=== PATIENT | male | born 1980 | race African-American/Black ===

== ENCOUNTER 2018-10-29 08:31 | Emergency (ER) | payer MEDICAID ==
[~2018-10-29] VITALS: Ht 190.5 cm; Wt 77.0 kg
[2018-10-29] MEDS ORDERED: ALBUTEROL (0.083%) 2.5MG/3ML NEB HHN STA (09:15)
[2018-10-29] MEDS ORDERED: ONDANSETRON 4MG ODT PO ONE (09:15)
[2018-10-29] MEDS ORDERED: DEXAMETHASONE 10 MG/ML VIAL IM ONE (10:00)
[2018-10-29] MEDS ORDERED: OSELTAMIVIR 75MG CAPSULE PO ONE (10:30)
[2018-10-29 11:08] VITALS: BP 100/55
== END 2018-10-29 11:14 | disposition home or self-care (01) ==
LOC: ER 08:31
DX: J09.X9 Influenza due to identified novel influenza A virus with other manifestations (principal); R11.10 Vomiting, unspecified; M79.10 Myalgia, unspecified site; J06.9 Acute upper respiratory infection, unspecified
CPT/HCPCS: 71045; 87804; 94640; 96372; 99284; J1100; Q0162; J7611